=== PATIENT | male | born 1995 | race African-American/Black ===

== ENCOUNTER 2017-12-10 05:57 | Emergency (ER) | payer OTHER ==
[~2017-12-10] VITALS: Ht 170.2 cm; Wt 58.1 kg
[~2017-12-10 05:57] MED LIST: AMOXICILLIN 50500 M1 PO; HYDROCODONE-AP1 EAC6 PO; IBUPROFEN 600600 M1 PO; NOHOMEMEDICATIONS; NORCO 5-325 TA1 EACH PO
[2017-12-10] MEDS ORDERED: NAPROSYN500 MG PO (06:54)
[2017-12-10] MEDS ORDERED: GUAIFEN-CODEINE10 ML PO (06:54)
[2017-12-10] MEDS ORDERED: PREDNISONE 20 M20 MG PO (07:03)
== END 2017-12-10 08:05 | disposition home or self-care (01) ==
LOC: ER 05:57
DX: J06.9 Acute upper respiratory infection, unspecified (principal); J45.909 Unspecified asthma, uncomplicated

== ENCOUNTER 2018-02-13 23:19 | Emergency (ER) | payer OTHER ==
[~2018-02-13] VITALS: Ht 170.2 cm; Wt 56.7 kg
[~2018-02-13 23:19] MED LIST changes: +GUAIFEN-CODEINE10 ML PO; +NAPROSYN500 MG PO; +PREDNISONE 20 M20 MG PO
[2018-02-14] MEDS ORDERED: MOBIC15 MG PO (00:48)
== END 2018-02-14 01:30 | disposition home or self-care (01) ==
LOC: ER 23:19
DX: R10.30 Lower abdominal pain, unspecified (principal); T50.995A Adverse effect of other drugs, medicaments and biological substances, initial encounter; J45.909 Unspecified asthma, uncomplicated; Y92.89 Other specified places as the place of occurrence of the external cause

== ENCOUNTER 2018-06-07 18:52 | Emergency (ER) | payer OTHER ==
[~2018-06-07] VITALS: Ht 170.2 cm; Wt 58.1 kg
[~2018-06-07 18:52] MED LIST changes: +MOBIC15 MG PO
[2018-06-07] MEDS ORDERED: REGLAN 10 MG TA10 MG PO (20:47)
[2018-06-07 21:01] VITALS: BP 129/90
== END 2018-06-07 21:01 | disposition home or self-care (01) ==
LOC: ER 18:52
DX: R51 Headache (principal); I10 Essential (primary) hypertension; J45.909 Unspecified asthma, uncomplicated

== ENCOUNTER 2018-07-06 03:27 | Emergency (ER) | payer OTHER ==
[~2018-07-06] VITALS: Ht 170.2 cm; Wt 58.1 kg
[~2018-07-06 03:27] MED LIST changes: +REGLAN 10 MG TA10 MG PO
[2018-07-06 03:37] VITALS: BP 142/85
[2018-07-06] MEDS ORDERED: PENICILLIN V P500 MG PO (03:57)
[2018-07-06] MEDS ORDERED: NAPROSYN500 MG PO (03:57)
== END 2018-07-06 05:10 | disposition home or self-care (01) ==
LOC: ER 03:27
DX: K02.9 Dental caries, unspecified (principal); K04.7 Periapical abscess without sinus; J45.909 Unspecified asthma, uncomplicated; I10 Essential (primary) hypertension

== ENCOUNTER 2018-11-27 20:54 | Emergency (ER) | payer OTHER ==
[~2018-11-27] VITALS: Ht 170.2 cm; Wt 56.7 kg
[~2018-11-27 20:54] MED LIST changes: +PENICILLIN V P500 MG PO
[2018-11-27] MEDS ORDERED: THERAFLU FLU &1 EAC1 PO (21:09)
[2018-11-27 22:35] VITALS: BP 126/88
== END 2018-11-27 22:36 | disposition home or self-care (01) ==
LOC: ER 20:54
DX: J06.9 Acute upper respiratory infection, unspecified (principal); J02.9 Acute pharyngitis, unspecified; L81.9 Disorder of pigmentation, unspecified

== ENCOUNTER 2019-02-09 01:35 | Emergency (ER) | payer OTHER ==
[~2019-02-09] VITALS: Ht 170.2 cm; Wt 58.1 kg
[~2019-02-09 01:35] MED LIST changes: +THERAFLU FLU &1 EAC1 PO
[2019-02-09 02:46] LABS: URINE BILIRUBIN NEGATIVE (Negative); URINE BLOOD NEGATIVE (Negative); URINE CLARITY CLEAR; URINE COLOR YELLOW; URINE GLUCOSE-RANDOM* NEGATIVE (Negative); URINE KETONES TRACE (Negative); URINE LEUKOCYTES-REFLEX NEGATIVE (Negative); URINE NITRITE-REFLEX NEGATIVE (Negative); URINE PROTEIN (DIPSTICK) NEGATIVE (Negative)
[2019-02-09] MEDS ORDERED: PROTONIX40 MG PO ×2 (03:11→03:26)
[2019-02-09] MEDS ORDERED: ZOFRAN ODT4 MG PO ×2 (03:11→03:26)
[2019-02-09] MEDS ORDERED: CARAFATE 1 GM TA1 G1 PO ×2 (03:11→03:26)
[2019-02-09 03:36] VITALS: BP 134/98
--- NOTE | 2019-02-09 07:38 | EKG ---
[place] [address] [facility] [place] [address] ELECTROCARDIOGRAM REPORT Name: DEONTE LAUREN Room #: [id number] ������������������ Admission: 02/09/19 ������������������ Attend Phys: Discharge: 02/09/19 ������������������ Date of : [birth year] Report #: [id number] ����������������������������������������������������������������� [id number] THIS REPORT FOR: //name// [facility] ED Test Date: 2019-02-09 Test Time: 02:26:15 Pat Name: DEONTE LAUREN Department: Room: Gender: M Application Operations Engineer: IVÁN : 1995 Requested By: Carlos Mendez Order Number: [id number] MD: Bandar Ramírez Measurements Intervals [place] Rate: 65 P: 57 AR: 164 QRS: 67 QRSD: 90 T: 57 QT: 399 QTc: 415 Interpretive Statements Sinus rhythm LVH by voltage ST elev, probable normal early repol pattern No previous ECG available for comparison Electronically Signed On 02-09-2019 7:38:45 CDT by Bandar Ramírez [email or web address] ��������������������������������������������� <ELECTRONICALLY SIGNED> ���������������������������������������� By: Bandar Ramírez MD, [facility] ��������������������������������������������� 02/09/19 [id number] 5 Bandar Ramírez MD, FACC /EPI
== END 2019-02-09 03:36 | disposition home or self-care (01) ==
LOC: ER 01:35
PROVIDERS: Emergency Medicine
DX: K21.9 Gastro-esophageal reflux disease without esophagitis (principal); J45.909 Unspecified asthma, uncomplicated; I10 Essential (primary) hypertension

== ENCOUNTER 2019-07-05 00:06 | Emergency (ER) | payer OTHER ==
[~2019-07-05] VITALS: Ht 170.2 cm; Wt 56.7 kg
[~2019-07-05 00:06] MED LIST changes: +CARAFATE 1 GM TA1 G1 PO; +PROTONIX40 MG PO; +ZOFRAN ODT4 MG PO
[2019-07-05] MEDS ORDERED: KEFLEX500 M1 PO (00:17)
[2019-07-05 00:23] VITALS: BP 148/64
== END 2019-07-05 00:35 | disposition home or self-care (01) ==
LOC: ER 00:06
DX: R19.04 Left lower quadrant abdominal swelling, mass and lump (principal); I10 Essential (primary) hypertension; J45.909 Unspecified asthma, uncomplicated